=== PATIENT | female | born 1955 | race Caucasian/White ===

== ENCOUNTER 2017-12-07 15:16 | Emergency (ER) | payer MEDICAID, MEDICARE ==
[~2017-12-07] VITALS: Ht 149.9 cm; Wt 54.4 kg
[2017-12-07 16:47] LABS: Basophils # (auto) 0.1 uL; Mean Corpuscular Volume 77.4 fL (80.0-100.0); Monocytes # (auto) 0.9 uL; Neutrophils % (auto) 65.2 % (37.0-80.0)
[2017-12-07 16:47] LABS: Urine Bacteria NONE SEEN /hpf (None Seen); Urine Blood 1+ /uL (Negative); Urine Specific Gravity 1.006 (1.001-1.035); Urine WBC <1 /hpf (0 - 5)
[2017-12-07 16:49] LABS: Basophils % (auto) 0.8 % (0.0-2.0); Eosinophils # (auto) 0.2 uL; Eosinophils % (auto) 2.1 % (0.0-7.0); Hematocrit 29.5 % (36.0-46.0); Hemoglobin 9.9 g/dL (12.2-16.2); Lymphocytes # (auto) 2.2 uL; Lymphocytes % (auto) 22.7 % (10.0-50.0); Mean Corpuscular Hemoglobin 25.9 pg (28.0-32.0); Mean Corpuscular Hgb Conc. 33.4 g/dL (32.0-36.0); Monocytes % (auto) 9.2 % (0.0-12.0); Neutrophils # (auto) 6.4 uL; Platelet Count (auto) 367 10^3/uL (140-450); Red Blood Cells 3.81 10^6/uL (4.0-5.20); Red Cell Distribution Width 16.2 % (11.8-14.3); White Blood Cell 9.8 10^3/uL (4.4-10.8)
[2017-12-07 17:04] LABS: Potassium 3.7 mmol/L (3.5-5.1)
[2017-12-07 17:10] LABS: BUN/Creatinine Ratio 16.9; Calcium 8.8 mg/dL (8.5-10.1)
[2017-12-07 17:11] LABS: Albumin 2.6 g/dL (3.4-5.0); Bilirubin, Total 0.5 mg/dL (0.2-1.0); Total Protein 8.8 g/dL (6.4-8.2)
[2017-12-07 20:17] VITALS: BP 108/74
== END 2017-12-07 20:23 | disposition home or self-care (01) ==
LOC: ER 15:16
DX: K86.89 Other specified diseases of pancreas (principal); C80.1 Malignant (primary) neoplasm, unspecified; C78.89 Secondary malignant neoplasm of other digestive organs; Z90.49 Acquired absence of other specified parts of digestive tract
CPT/HCPCS: 36415; 74176; 80053; 81001; 85025